=== PATIENT | female | born 1955 | race American Indian/Alaskan Native ===

== ENCOUNTER 2017-02-26 16:40 | Emergency (ER) | payer SELFPAY ==
[2017-02-26 16:50] VITALS: BP 148/55; PULSE 67; RESP 20; TEMP 98.6; O2SAT 99
[2017-02-26 16:51] VITALS: BMI 31.6
[2017-02-26] MEDS ORDERED: Bacitracin 500 Units/gm Oint Foilpak UD TOP STA (16:55)
[2017-02-26] MEDS ORDERED: Bacitracin 500 Units/gm Oint Foilpak UD ONE (17:04)
--- NOTE | 2017-02-26 17:11 | C.PDOC ---
History Of Present Illness 61 y/o female c/o bleeding from the right lower leg that began today. Reports that the skin is thin and she may have scraped her ankle into something while walking in flipflops. Denies hx of bleeding disorder. Denies fever, chills, or any other complaints. Time Seen by Provider: 02/26/17 16:50 Chief Complaint (Nursing): Abnormal Skin Integrity History Per: Patient History/Exam Limitations: no limitations Onset/Duration Of Symptoms: Hrs Current Symptoms Are (Timing): Still Present Location Of Injury: Right: Leg (Right lower leg) Severity: Mild Recent travel outside of the [place]: No Additional History Per: Patient Past Medical History Reviewed: Historical Data, Nursing Documentation, Vital Signs Vital Signs: Last Vital Signs Temp 98.6 F 02/26/17 16:49 Pulse 67 02/26/17 16:49 Resp 20 02/26/17 16:49 BP 148/55 L 02/26/17 16:49 Pulse Ox 99 02/26/17 17:14 - Medical History PMH: HTN Denies: Bronchitis Family History: States: Unknown Family Hx - Social History Hx Tobacco Use: No Hx Alcohol Use: No Hx Substance Use: No - Immunization History Hx Tetanus Toxoid Vaccination: No Hx Influenza Vaccination: No Hx Pneumococcal Vaccination: No Review Of Systems Constitutional: Negative for: Fever, Chills Cardiovascular: Negative for: Chest Pain Respiratory: Negative for: Cough Gastrointestinal: Negative for: Nausea, Vomiting, Abdominal Pain, Diarrhea, Constipation Musculoskeletal: Negative for: Neck Pain Skin: Positive for: Other (Bleeding from the right lower leg) Neurological: Negative for: Weakness, Numbness Physical Exam - Physical Exam Appears: Well, Non-toxic, No Acute Distress Skin: Warm, Dry Head: Atraumatic, Normacephalic Eye(s): bilateral: Normal Inspection, PERRL, EOMI Extremity: Normal ROM (Right lower leg), Capillary Refill (<2secs), Other ( Pinpoint area that was bleeding is now not) Extremity: Bilateral: Normal Color And Temperature Pulses: Left Dorsalis Pedis: Normal, Right Dorsalis Pedis: Normal Neurological/Psych: Oriented x3, Normal Speech, Normal Cognition Gait: Steady ED Course And Treatment O2 Sat by Pulse Oximetry: 99 (RA) Pulse Ox Interpretation: Normal Medical Decision Making Medical Decision Making: Impression: * Bleeding from the right lower leg today. Plans: * Bacitracin Hemostasis has been achieved and there is no indication for sutures or dionicio. Bacitracin applied and wound dressed Patient is in no acute distress at this time and is afebrile. Patient was advised to follow up with PMD within 2 days for further evaluation. Disposition - Disposition Disposition: HOME/ ROUTINE Disposition Time: 17:13 Condition: GOOD Additional Instructions: Keep wound clean and dry. Return to ED if condition worsens. Follow-up with PMD within 2 days Forms: [employer] (Chilean) - Clinical Impression Clinical Impression: Skin lesion - Scribe Statement The provider has reviewed the documentation as recorded by the Scribe Katiuska hong All medical record entries made by the Scribe were at my direction and personally dictated by me. I have reviewed the chart and agree that the record accurately reflects my personal performance of the history, physical exam, medical decision making, and the department course for this patient. I have also personally directed, reviewed, and agree with the discharge instructions and disposition.
== END 2017-02-26 17:26 | disposition home or self-care (01) ==
LOC: C.ER 16:40
DX: L98.8 Other specified disorders of the skin and subcutaneous tissue (principal)

== ENCOUNTER 2017-02-28 12:27 | Emergency (ER) | payer SELFPAY ==
[2017-02-28 12:28] VITALS: BMI 31.6
[2017-02-28 12:42] VITALS: BP 143/83; PULSE 74; RESP 16; TEMP 98.4; O2SAT 99
--- NOTE | 2017-02-28 13:12 | C.PDOC ---
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 Patient states the bleeding has now resolved. Patient reports history of chronic scarring to the right ankle/foot. Denies trauma, injury, leg pain, foot pain, weakness or numbness. 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 NOW RESOLVED. NO TRAUMA. DENIES RECENT SWELLING FEET. HO CHRONIC SCARRING R ANKLE/FOOT. EXAM NAD SKIN CHRONIC SCARRING, SUPERFICIAL ULCERATION LATERAL R ANKLE. NO ACTIVE BLEED. NO VARICOSITY. NONTEND. 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 Musculoskeletal: Negative for: Leg Pain, Foot Pain, Other Neurological: Negative for: Weakness, Numbness Physical Exam - Physical Exam Appears: Non-toxic, No Acute Distress Skin: Warm, Dry, No Rash, Other (Chronic scarring, superficial ulceration lateral right ankle. No active bleeding. No varicosity. Non tender. No visualizes varicosity. ) Head: Atraumatic, Normacephalic Oral Mucosa: Moist Chest: Symmetrical, No Tenderness Cardiovascular: Rhythm Regular, No Murmur Respiratory: Normal Breath Sounds, No Rales, No Rhonchi, No Stridor, No Wheezing Extremity: Normal ROM, No Calf Tenderness, No Deformity, No Swelling Neurological/Psych: Oriented x3, Normal Speech, Normal Motor ED Course And Treatment O2 Sat by Pulse Oximetry: 99 (RA) Pulse Ox Interpretation: Normal Disposition Counseled Patient/Family Regarding: Diagnosis, Need For Followup - Disposition [facility]: [facility] [Outside] [facility] [Outside] [facility] [Outside] Disposition: HOME/ ROUTINE Disposition Time: 13:14 Condition: IMPROVED Instructions: Acute Wound Care (ED) Forms: [facility] (Yoruba) - Clinical Impression Clinical Impression: Skin irritation - Scribe Statement The provider has reviewed the documentation as recorded by the Scribe Naheed Michel Provider Attestation: All medical record entries made by the Scribe were at my direction and personally dictated by me. I have reviewed the chart and agree that the record accurately reflects my personal performance of the history, physical exam, medical decision making, and the department course for this patient. I have also personally directed, reviewed, and agree with the discharge instructions and disposition.
== END 2017-02-28 13:24 | disposition home or self-care (01) ==
LOC: C.ER 12:27
DX: L98.9 Disorder of the skin and subcutaneous tissue, unspecified (principal)